=== PATIENT | male | born 1980 | race Caucasian/White ===

== ENCOUNTER → 2016-05-02 | Outpatient (CLI) | payer OTHER ==
--- NOTE | 2016-05-02 13:11 | REP ---
MR INTERNAL AUDITORY CANALS WITHOUT AND WITH CONTRAST: HISTORY: Sensorineural hearing loss. CONTRAST: ProHance 22 mL. Several punctate areas of increased signal intensity on T2-weighted images are present in the subcortical white matter. There is no intraparenchymal hemorrhage, infarct, mass, or midline shift. There is no abnormal enhancement. The ventricular system is normal in appearance. There is no extracerebral collection. There is no cerebellopontine angle mass. The inner ear structures are normal in appearance. Mucosal thickening is present in the mastoid air cells and maxillary sinuses. The right cerebellar tonsil extends at least 3 mm inferior through the foramen magnum. IMPRESSION: 1. There are several punctate areas of increased signal intensity in the subcortical white matter. This is a nonspecific finding. 2. The right cerebellar tonsil extends at least 3 mm inferior through the foramen magnum. Sagittal MR images of the brain may be helpful to exclude tonsillar ectopia. Signed by Hammad Moran MD 05/02/2016 01:14 P
== END ==
LOC: M RAD 10:38
PROVIDERS: ATTEND Otolaryngology
DX: H90.3 Sensorineural hearing loss, bilateral (principal)
CPT/HCPCS: 70553; A9576

== ENCOUNTER 2017-07-10 15:44 | Emergency (ER) | payer OTHER ==
[2017-07-10] MEDS: ADACEL/BOOSTRIX VACCINE (DIPHTH/PERTUSS/ACELL/TETANUS)0.5ML SYR (90715) IM (16:38)
== END 2017-07-10 17:42 | disposition home or self-care (01) ==
LOC: M ED 15:44
DX: S62.661A Nondisplaced fracture of distal phalanx of left index finger, initial encounter for closed fracture (principal); S60.411A Abrasion of left index finger, initial encounter; W29.8XXA Contact with other powered hand tools and household machinery, initial encounter; Y92.89 Other specified places as the place of occurrence of the external cause; I10 Essential (primary) hypertension; F43.10 Post-traumatic stress disorder, unspecified; Z79.899 Other long term (current) drug therapy
CPT/HCPCS: 90715

== ENCOUNTER 2018-02-06 01:05 | Emergency (ER) | payer OTHER ==
[~2018-02-06] VITALS: Ht 193 cm; Wt 127.3 kg
[~2018-02-06 01:05] MED LIST: ADVA115A; ALL10TAB28; BUSP10TA; DULO30CA PO; FLUTISP; LOSA50TA88 PO; LYRI300C PO; MIRT15TA3; PERC5TAB12 PO; PRAZ1CAP; TIZANIDINE PO; VITA50005
[2018-02-06] MEDS ORDERED: ROSU40TA3 (01:16)
[2018-02-06 03:02] LABS: BASO # 0.1 10^3/uL (0.0-0.2); BASO % 0.4 % (0.0-1.0); EOS # 0.3 10^3/uL (0.0-0.50); EOS % 2.3 % (0.0-3.0); HEMATOCRIT 42.3 % (42.0-52.0); HEMOGLOBIN 14.3 g/dl (13.5-17.5); LYMPH # 2.8 10^3/uL (1.5-4.5); LYMPH % 21.5 % (24.0-44.0); MEAN CORPUSCULAR HEMOGLOBIN 28.9 pg (27.0-33.0); MEAN CORPUSCULAR HGB CONC 33.8 g/dl (32.0-36.5); MEAN CORPUSCULAR VOLUME 85.6 fl (80.0-96.0); MONO % 7.7 % (0.0-5.0); NEUTROPHILS # 8.8 10^3/uL (1.8-7.7); NEUTROPHILS % 67.5 % (36.0-66.0); PLATELET COUNT, AUTOMATED 230 10^3/uL (150-450); RED BLOOD COUNT 4.94 10^6/uL (4.30-6.10); WHITE BLOOD COUNT 13.1 10^3/uL (4.0-10.0)
[2018-02-06] MEDS ORDERED: NS 1,000 ML IV ONE (03:15)
[2018-02-06 03:21] LABS: BLOOD UREA NITROGEN 18 MG/DL (7-18); CALCIUM LEVEL 8.5 MG/DL (8.5-10.1); CARBON DIOXIDE LEVEL 28 MEQ/L (21-32); CHLORIDE LEVEL 104 MEQ/L (98-107); CPK CREATINE PHOSPHOKINASE 264 U/L (39-308); CREATININE FOR GFR 1.12 MG/DL (0.70-1.30); ETHYL ALCOHOL (ETHANOL) < 0.003 % (0.000-0.010); GLOMERULAR FILTRATION RATE > 60.0 (>60); GLUCOSE, FASTING 118 MG/DL (70-100); MB/CK RELATIVE INDEX 1.33 (< OR =4); POTASSIUM SERUM 4.1 MEQ/L (3.5-5.1); SODIUM LEVEL 140 MEQ/L (136-145); TROPONIN I < 0.02 NG/ML (< 0.10)
[2018-02-06 04:35] LABS: FREE T4 0.86 NG/DL (0.76-1.46)
[2018-02-06 05:30] LABS: AMPHETAMINES LEVEL URINE NEGATIVE (NEGATIVE); BARBITURATES URINE NEGATIVE (NEGATIVE); BENZODIAZEPINES URINE NEGATIVE (NEGATIVE); CANNABINOIDS URINE NEGATIVE (NEGATIVE); COCAINE METABOLITE URINE NEGATIVE (NEGATIVE); METHADONE URINE NEGATIVE (NEGATIVE); OPIATES URINE NEGATIVE (NEGATIVE); PHENCYCLIDINE URINE NEGATIVE (NEGATIVE)
[2018-02-06 06:15] VITALS: BP 114/59
--- NOTE | 2018-02-06 11:25 | ECGEPIP ---
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
== END 2018-02-06 06:25 | disposition home or self-care (01) ==
LOC: M ED 01:05
DX: R55 Syncope and collapse (principal); J45.909 Unspecified asthma, uncomplicated; I10 Essential (primary) hypertension; F43.10 Post-traumatic stress disorder, unspecified; Z79.899 Other long term (current) drug therapy; Z77.098 Contact with and (suspected) exposure to other hazardous, chiefly nonmedicinal, chemicals
CPT/HCPCS: 80048; 80307; 82550; 82553; 83605; 84439; 84443; 84484; 85025; 93005; 93041; 94760; 96360; 96361; 99285; G0480

== ENCOUNTER → 2018-04-22 | Outpatient (REF) | payer OTHER ==
[~2018-04-22] MED LIST changes: +MELO15TA28 PO; +METF500T13 PO; -MIRT15TA3; +MIRT15TA3 PO; +ROSU40TA3 PO; +VENTAER INH
== END ==
LOC: M SFHCLERA 17:53
PROVIDERS: ATTEND Nurse Practitioner Family
DX: R53.81 Other malaise (principal)

== ENCOUNTER → 2018-06-24 | Outpatient (CLI) | payer OTHER ==
[~2018-06-24] VITALS: Ht 185.4 cm; Wt 127.0 kg
[~2018-06-24] MED LIST changes: -DULO30CA PO; +DULO30CA9 PO; +IPRATROPIUM 0.02% SOLN 0.5MG/2.5 ML NEB INH STA; +MIRT1TAB16 PO; +NS 1,000 ML IV ONE
[2018-06-24 10:44] VITALS: BP 139/87
== END ==
LOC: M OPP 10:00 → EDSTATUS 11:15
PROVIDERS: ATTEND Internal Medicine Gastroenterology
DX: R06.2 Wheezing (principal); R13.10 Dysphagia, unspecified

== ENCOUNTER 2019-03-17 10:06 | Day surgery (SDC) | payer OTHER ==
[~2019-03-17] VITALS: Ht 185.4 cm; Wt 131.5 kg
[~2019-03-17 10:06] MED LIST changes: +ADVA115A INH; -ALL10TAB28; +ALL10TAB29; +CRES10TA PO; -IPRATROPIUM 0.02% SOLN 0.5MG/2.5 ML NEB INH STA; +JARD1TAB3 PO; +LIDOCAINE 2% INJ 100 MG/5 ML SDV (FOR ANES.) As Ordered ONE; +METF750T36 PO; +MULTCAP PO; +OMEP-221 PO; -PRAZ1CAP; +PRAZ1CAP PO; -ROSU40TA3 PO; +ROSU40TA4 PO; +VITA50005 PO; +propofoL 500 MG/50 ML VIAL As Ordered ONE
[2019-03-17] MEDS ORDERED: fentaNYL 100 MCG/2 ML INJECTION (J3010) As Ordered ONE (11:20)
--- NOTE | 2019-03-17 11:45 | ROOR ---
Patient Name: Merrill Billy Procedure Date: 03/17/2019 11:22 AM Date of : 1980 Age: 38 Room: [facility] Gender: Male Note Status: Finalized Procedure: Upper Endoscopy + Biopsies Indications: Dysphagia, Heartburn Providers: Antonio Vilchis MD Referring MD: [facility], Admin. Requesting Provider: Medicines: Monitored Anesthesia Care Complications: No immediate complications. Procedure: Pre-Anesthesia Assessment: - The heart rate, respiratory rate, oxygen saturations, blood pressure, adequacy of pulmonary ventilation, and response to care were monitored throughout the procedure. The Endoscope was introduced through the mouth, and advanced to the second part of duodenum. The upper GI endoscopy was accomplished without difficulty. The patient tolerated the procedure well. Findings: The Z-line was regular and was found 43 cm from the incisors. Multiple biopsies were obtained with cold forceps for evaluation to rule out Garber's Esophagus randomly at the gastroesophageal junction. A small hiatal hernia was present. No other significant abnormalities were identified in a careful examination of the stomach. Biopsies were taken with a cold forceps in the gastric antrum for Helicobacter pylori testing. Diffuse, white plaques were found in the mid esophagus. Biopsies were taken with a cold forceps for histology. The cardia and gastric fundus were normal on retroflexion. Impression: - Z-line regular, 43 cm from the incisors. - Small hiatal hernia. - Esophageal plaques were found, suspicious for candidiasis. Biopsied. - Multiple biopsies were obtained at the gastroesophageal junction. - Biopsies were taken with a cold forceps for Helicobacter pylori testing. - The examination was otherwise normal. Recommendation: - Await pathology results. - Discharge patient to home. - Follow an antireflux regimen. - Continue present medications. - Await pathology results. - Telephone GI clinic for pathology results in 1 week. - Return to referring physician. - The findings and recommendations were discussed with the patient's family. Antonio Vilchis MD Antonio Vilchis MD 03/17/2019 11:45:23 AM Electronically signed by Antonio Vilchis MD Number of Addenda: 0 Note Initiated On: 03/17/2019 11:22 AM Estimated Blood Loss: Estimated blood loss: none.
[2019-03-17] MEDS ORDERED: propofoL 500 MG/50 ML VIAL As Ordered ONE (11:49)
--- NOTE | 2019-03-17 12:02 | ROOR ---
Patient Name: Merrill Billy Procedure Date: 03/17/2019 11:23 AM Date of : 1980 Age: 38 Room: [facility] Gender: Male Note Status: Finalized Procedure: Total Colonoscopy to Cecum Indications: Rectal bleeding, Change in bowel habits Providers: Antonio Vilchis MD Referring MD: [facility], Admin. Requesting Provider: Medicines: Monitored Anesthesia Care Complications: No immediate complications. Procedure: Pre-Anesthesia Assessment: - The heart rate, respiratory rate, oxygen saturations, blood pressure, adequacy of pulmonary ventilation, and response to care were monitored throughout the procedure. The Colonoscope was introduced through the anus and advanced to the cecum, identified by appendiceal orifice and ileocecal valve. The colonoscopy was performed without difficulty. The patient tolerated the procedure well. The quality of the bowel preparation was excellent. Findings: The perianal and digital rectal examinations were normal. Non-bleeding internal hemorrhoids were found during retroflexion. The hemorrhoids were small and Grade I (internal hemorrhoids that do not prolapse). The exam was otherwise without abnormality on direct and retroflexion views. The exam was otherwise without abnormality. Impression: - Non-bleeding internal hemorrhoids. - The examination was otherwise normal on direct and retroflexion views. - The examination was otherwise normal. - No specimens collected. - The exam was otherwise normal to the cecum. Recommendation: - Patient has a contact number available for emergencies. The signs and symptoms of potential delayed complications were discussed with the patient. Return to normal activities tomorrow. Written discharge instructions were provided to the patient. - High fiber diet. - Discharge patient to home. - Continue present medications. - Repeat colonoscopy at age 51 for screening purposes. - Return to referring physician. - The findings and recommendations were discussed with the patient's family. Antonio Vilchis MD Antonio Vilchis MD 03/17/2019 12:01:21 PM Electronically signed by Antonio Vilchis MD Number of Addenda: 0 Note Initiated On: 03/17/2019 11:23 AM Estimated Blood Loss: Estimated blood loss: none.
[2019-03-17 12:23] VITALS: BP 164/94
== END 2019-03-17 12:25 | disposition home or self-care (01) ==
LOC: M OPP 10:06
PROVIDERS: ATTEND Internal Medicine Gastroenterology
DX: R13.10 Dysphagia, unspecified (principal); R12 Heartburn; R19.4 Change in bowel habit; K64.0 First degree hemorrhoids; K62.5 Hemorrhage of anus and rectum; K44.9 Diaphragmatic hernia without obstruction or gangrene; E11.9 Type 2 diabetes mellitus without complications; G47.30 Sleep apnea, unspecified; I10 Essential (primary) hypertension; K76.0 Fatty (change of) liver, not elsewhere classified; K21.9 Gastro-esophageal reflux disease without esophagitis; M54.9 Dorsalgia, unspecified; F41.9 Anxiety disorder, unspecified; F32.9 Major depressive disorder, single episode, unspecified; F43.10 Post-traumatic stress disorder, unspecified; J45.909 Unspecified asthma, uncomplicated; R06.83 Snoring; G62.9 Polyneuropathy, unspecified; F17.290 Nicotine dependence, other tobacco product, uncomplicated; Z79.84 Long term (current) use of oral hypoglycemic drugs; Z79.899 Other long term (current) drug therapy; Z91.018 Allergy to other foods
CPT/HCPCS: 43239; 45378; 88305; 88313; J3010

== ENCOUNTER 2019-04-12 20:49 | Emergency (ER) | payer OTHER ==
[~2019-04-12] VITALS: Ht 188 cm; Wt 136.4 kg
[~2019-04-12 20:49] MED LIST changes: -LIDOCAINE 2% INJ 100 MG/5 ML SDV (FOR ANES.) As Ordered ONE; -NS 1,000 ML IV ONE; -propofoL 500 MG/50 ML VIAL As Ordered ONE
[2019-04-12] MEDS ORDERED: ACETAMINOPHEN 500 MG TAB PO ONE (23:15)
[2019-04-12 23:33] VITALS: BP 154/84
--- NOTE | 2019-04-13 08:11 | REP ---
Left wrist series: Four views. History: Injury in a fall. Findings: Four views of the left wrist demonstrate overall normal mineralization. No fracture or subluxation is seen. Impression: No fracture noted. Electronically Signed by Fermin Del Real MD 04/13/2019 08:03 A
--- NOTE | 2019-04-13 08:12 | REP ---
Left shoulder: Three views. History: Injury in a fall. Findings: The left glenohumeral and acromioclavicular joints are normally aligned. No fracture or subluxation is seen. Periarticular soft tissues are unremarkable. Impression: Negative radiographs of the left shoulder. Electronically Signed by Fermin Del Real MD 04/13/2019 08:04 A
== END 2019-04-12 23:34 | disposition home or self-care (01) ==
LOC: M ED 20:49
DX: S69.92XA Unspecified injury of left wrist, hand and finger(s), initial encounter (principal); S49.92XA Unspecified injury of left shoulder and upper arm, initial encounter; W01.10XA Fall on same level from slipping, tripping and stumbling with subsequent striking against unspecified object, initial encounter; Y92.89 Other specified places as the place of occurrence of the external cause; Y93.9 Activity, unspecified; Y99.0 Civilian activity done for income or pay; E11.9 Type 2 diabetes mellitus without complications; I10 Essential (primary) hypertension; J45.909 Unspecified asthma, uncomplicated; G89.29 Other chronic pain; M54.9 Dorsalgia, unspecified; Z79.84 Long term (current) use of oral hypoglycemic drugs; Z79.899 Other long term (current) drug therapy; Z91.018 Allergy to other foods

== ENCOUNTER 2019-04-15 14:02 | Emergency (ER) | payer OTHER ==
[~2019-04-15] VITALS: Ht 188 cm; Wt 134.2 kg
[2019-04-15] MEDS ORDERED: ACET325C5 PO (14:10)
--- NOTE | 2019-04-15 15:01 | REP ---
RIGHT WRIST, FOUR VIEWS: There is no evidence of an acute fracture, dislocation or intrinsic bone disease. IMPRESSION: No fracture or dislocation. Electronically Signed by Adan Young MD 04/16/2019 04:46 P
--- NOTE | 2019-04-15 15:02 | REP ---
RIGHT FOREARM, TWO VIEWS: There is no evidence of an acute fracture, dislocation or intrinsic bone disease. IMPRESSION: No fracture or dislocation. Electronically Signed by Adan Young MD 04/16/2019 04:46 P
[2019-04-15 15:56] VITALS: BP 146/86
== END 2019-04-15 16:10 | disposition home or self-care (01) ==
LOC: M ED 14:02
DX: S63.501A Unspecified sprain of right wrist, initial encounter (principal); W19.XXXA Unspecified fall, initial encounter; Y92.89 Other specified places as the place of occurrence of the external cause; Y93.9 Activity, unspecified; Y99.0 Civilian activity done for income or pay; Z79.899 Other long term (current) drug therapy; Z91.018 Allergy to other foods